=== PATIENT | male | born 1955 | race Caucasian/White ===

== ENCOUNTER 2016-09-26 14:50 | Inpatient (IN) ==
--- NOTE | 2016-09-26 15:00 | Emergency Department Note ---
Disposition Clinical Impression: Pulmonary embolism and infarction Disposition: Admitted As Inpatient Condition: Fair Referrals: Alexandro Andrade MD [Partnered Physician] - Forms: ED Satisfaction Letter Time of Disposition: 16:23 Chest Pain HPI - General Chief Complaint: ED Chest Pain Stated Complaint: R/O PE Time Seen by Provider: 09/26/16 14:57 Source: patient, EMS Mode of arrival: EMS Limitations: no limitations Vital Signs Reviewed: Yes Nursing Notes Reviewed: Yes - History of Present Illness HPI Narrative: 61-year-old male who presents [facility] complaining of right chest pain. Patient had some burning pain in his right calf 2 days ago that went away yesterday had acute onset of right chest discomfort seen at the [facility] today they did a chest x-ray showed slightly diminished lung volumes with left basilar opacity. Urinalysis was essentially negative. White count was 15.3 H&H of 15 3 and 46.4 with a platelet count of 220 d-dimer was 1.50 with high normal being 0.53. Do not have a renal function. Pt complaint: chest pain Onset (ago): day(s) Duration: intermittent Onset: during rest Pain Location: right chest Severity: moderate Quality: sharp Improves with: other (Shallow breathing) Worsens with: other (Breathing) - Related Data Allergies Allergy/AdvReac Type Severity Reaction Status Date / Time No Known Allergies Allergy Verified 09/26/16 15:05 All systems ED: reviewed and negative except as stated. Constitutional: Denies: fever, chills, weakness, weight change Eyes: Denies: eye pain, eye discharge, vision change ENT ED: Denies: ear pain, throat pain, dental pain, hearing loss, epistaxis, congestion, dysphagia Cardiovascular: Reports: chest pain. Denies: palpitations, dyspnea on exertion , edema, syncope Respiratory: Denies: cough, dyspnea, wheezes, hemoptysis, stridor Gastrointestinal: Denies: abdominal pain, nausea, vomiting, diarrhea, constipation, hematemesis, melena, hematochezia Genitourinary: Denies: urgency, dysuria, frequency, hematuria Musculoskeletal: Denies: back pain, neck pain, arthralgia, myalgia Integumentary: Denies: rash, abrasion, lesions Neurological: Denies: headache, weakness, numbness, paresthesias, confusion, abnormal gait, vertigo Psychiatric: Denies: anxiety, depression, suicidal thoughts, homicidal thoughts , auditory hallucinations, visual hallucinations Endocrine: Denies: fatigue Hematological/Lymphatic: Denies: easy bleeding, easy bruising Allergic/Immunologic: Denies: facial swelling, urticaria Physical Exam - General Limitations: no limitations General appearance: alert, in no apparent distress - Head Head exam: atraumatic, normocephalic, normal inspection - Eye Eye exam: Present: normal appearance, PERRL, EOMI - ENT ENT exam: normal exam, normal oropharynx, mucous membranes moist - Neck Neck exam: Present: normal inspection, full ROM, trachea midline - Chest Chest inspection: Present: normal inspection, symmetric chest wall rise - Respiratory Respiratory exam: Present: normal lung sounds bilaterally - Cardiovascular Cardiovascular exam: Present: regular rate, normal rhythm, normal heart sounds - Abdominal Exam Abdominal exam: Present: soft, Non-Tender. Absent: tenderness, distention, guarding, rebound, rigidity - Extremities Exam Extremities exam: Present: normal inspection, full ROM. Absent: tenderness, pedal edema - Expanded Lower Extremity Exam Neurovascular/Tendon exam: Absent: motor deficit, sensory deficit, tendon deficit - Back Exam Back exam: Present: normal inspection, full ROM. Absent: tenderness - Neurological Exam Neurological exam: Present: alert, oriented X3 - Psychiatric Psychiatric exam: Present: normal affect, normal mood - Skin Skin exam: Present: warm, dry, intact, normal color Course - Reevaluation(s) Reevaluation #1: 61-year-old who came over from the [facility] with right chest pain area at CTA does show pulmonary embolism with pulmonary infarct. Patient has some renal insufficiency were to start him on some heparin. Will be admitted. Time: 17:03 - Consultations Consultation #1: Stressed with Dr. Petersen, admit Time: 17:04 Vital Signs Temperature 98.5 F 09/26/16 14:52 Pulse Rate 97 09/26/16 14:52 Respiratory Rate 18 09/26/16 14:52 Blood Pressure 122/75 09/26/16 14:52 O2 Sat by Pulse Oximetry 97 09/26/16 14:52 Temperature 98.5 F 09/26/16 14:52 Pulse Rate 97 09/26/16 14:52 Respiratory Rate 18 09/26/16 14:52 Blood Pressure 122/75 09/26/16 14:52 O2 Sat by Pulse Oximetry 97 09/26/16 14:52 Oxygen Delivery Oxygen Delivery Room Air Chest Pain - Lab Data Lab results reviewed: Yes I reviewed the patient's lab results. Result diagrams: 09/26/16 15:12 09/26/16 15:12 Lab Results 09/26/16 09/26/16 Range/Units 15:12 15:12 WBC 16.5 H (4.3-11.1) K/mcL RBC 4.96 (4.19-5.50) M/mcL Hgb 14.3 (12.9-16.9) g/dL Hct 43.8 (37.5-50.1) % MCV 88.3 (83.0-100.0) fL MCH 28.8 (28.0-33.3) pg MCHC 32.6 (31.6-35.5) g/dL RDW 12.5 (11.5-14.5) % Plt Count 209 (140-400) K/mcL MPV 10.8 (9.4-12.4) fL Sodium 139 (136-145) mEq/L Potassium 4.4 (3.5-4.5) mEq/L Chloride 101 (98-109) mEq/L Carbon Dioxide 26 (19-29) mEq/L BUN 14 (8-26) mg/dL Creatinine 1.37 H (0.72-1.25) mg/dL Est GFR ( Amer) > 60 (> 60) Est GFR (Non-Af Amer) 53 L (> 60) BUN/Creatinine Ratio 10 (6-26) Glucose 122 H (70-99) mg/dL Calculated Osmolality 290 (280-300) Calcium 10.3 (8.6-10.8) mg/dL - Radiology Data Radiology results reviewed: Yes I reviewed the patient's radiology results. Chest CTA 09/26/16 14:57 IMPRESSION: 1. Evidence of bilateral lower lung pulmonary emboli, mainly on the right, with associated airspace disease, some of which is likely pulmonary infarct. Findings were discussed with Sriram Lowe at 4:22 pm on 09/26/2016. D/ / Alber Pastor MD / Alber Pastor MD Interpreting Provider: Alber Pastor MD Heart Score - Score History: Slightly Suspicious EKG: Normal Risk Factors: 1-2 risk factors Troponin: Less than normal limit Critical Care Time Critical Care Time: Yes Total Critical Care Time: 30 Attestation: The high probability of a clinically significant, sudden or life threatening deterioration of the [cardiopulmonary] system(s) required my full and direct attention, intervention and personal management. The aggregate critical care time was [30] minutes. This time is in addition to time spent performing reported procedures but includes the following: [x] Data Review and interpretation [x] Patient assessment and monitoring of vital signs [x] Documentation [x] Medication orders and management
[2016-09-26 15:33] LABS: BUN/Creatinine Ratio 10 (6-26); Blood Urea Nitrogen 14 mg/dL (8-26); Calcium 10.3 mg/dL (8.6-10.8); Carbon Dioxide 26 mEq/L (19-29); Chloride 101 mEq/L (98-109); Glucose 122 mg/dL (70-99); Osmolality,Calculated 290 (280-300); Potassium 4.4 mEq/L (3.5-4.5); Sodium 139 mEq/L (136-145); eGFR For African Americans > 60 (> 60); eGFR For Non-African Americans 53 (> 60)
[2016-09-26] MEDS ORDERED: 0.9 % Sodium Chloride 1,000 ML IVC ONE (15:35)
[2016-09-26] MEDS ORDERED: *HR* Heparin 5,000 UNIT/ML VIAL IVP PRN ×2 (16:21)
[2016-09-26] MEDS ORDERED: *HR* Heparin 5,000 UNIT/ML VIAL IVP ONE (16:21)
[2016-09-26] MEDS ORDERED: Heparin 25,000 UNIT/500 ML D5W 25,000 UNIT/500 ML MLS IVC SCH (16:30)
[2016-09-26 16:58] LABS: Hematocrit 43.8 % (37.5-50.1); Hemoglobin 14.3 g/dL (12.9-16.9); Mean Corpuscular HGB Conc 32.6 g/dL (31.6-35.5); Mean Corpuscular Hemoglobin 28.8 pg (28.0-33.3); Mean Corpuscular Volume 88.3 fL (83.0-100.0); Mean Platelet Volume 10.8 fL (9.4-12.4); Platelet Count 209 K/mcL (140-400); Red Blood Count 4.96 M/mcL (4.19-5.50); Red Cell Distribution Width 12.5 % (11.5-14.5)
[2016-09-26 17:07] LABS: INR 1.2; Prothrombin Time 12.8 Seconds (9.4-12.1)
[2016-09-26] MEDS ORDERED: *HR* HYDROcodone/Acet 5/325 mg TABLET PO PRN (17:58)
--- NOTE | 2016-09-26 18:05 | Internal Med History&Physical ---
Date of Encounter: 09/26/16 Time of Encounter: 17:59 Assessment and Plan (1) Low back pain Current visit: Yes Status: Acute Over the past week patient has been more recumbent related to back injury. No clinical signs of spinal cord injury. Pain control and muscle relaxant. Outpatient follow-up with neurosurgery. Qualifiers: Qualified Code(s): M54.5 - Low back pain (2) Pulmonary embolism and infarction Current visit: Yes Status: Acute I suspect that this is provoked pulmonary embolism. Suspect two provoking factors: 1st is increased recumbency related to his back pain. 2nd, 4 months ago he had a trip from [place] to [place] driving. Advised him to avoid prolonged travels like that. Patient will need at least 3 to 6 month of anticoagulation. He had no prior history of DVT or PE. No family history of pulmonary embolism. He was already started on heparin, if we want to check Hypercoagulable work up this has to be done as an outpatient. I discussed with him that he will need to see hematology after hospital discharge the [facility] opinion about duration of Anticoagulation. (3) Leucocytosis Current visit: Yes Status: Acute Suspected this is related to pulmonary embolism. Although there is evidence of consolidation on CT scan is likely related to pulmonary infarction. He denies any sputum production. He is afebrile. I will hold off antibiotics for now. Qualifiers: Qualified Code(s): D72.829 - Elevated white blood cell count, unspecified Internal Medicine - H&P: HPI Chief complaint: chest pain History of present illness: Mr. Ruiz is a 61 year old male with a history of hypertension, chronic back pain was sent from the [place] for further workup at our facility. Over the past week patient had injury of his left lower back. Has been more or less recumbent since then. Yesterday patient started complaining of right-sided chest pain pleuritic in nature worsens with inspiration. He did complain of some burning sensation in his right calf prior to that. He denies any syncope, hemoptysis. He was not room air during my interview. An elevated D-dimer provoked CTA which showed evidence of bilateral pulmonary embolism. 4 months ago patient had a trip to [place] driving with multiple stops. No prior history of DVT or pulmonary embolism. No family history of DVT/ or pulmonary embolism. Patient denies any fevers or sputum production. Denies any history of G.I. bleeding or any other contraindication for anticoagulation therapy. Past Med Surg Social Fam HX - Past Medical History Medical history: hyperlipidemia, hypertension - Social History Smoking Status: Never smoker Smokeless Tobacco Status: No Alcohol use: heavy Drug use: marijuana Internal Medicine - H&P: Meds Allergies No Known Allergies Allergy (Verified 09/26/16 15:05) All Systems PM: A 10-system review of systems was performed and is negative for pertinent findings except as documented above in the HPI. Review of systems: 10 point review of systems is negative except for HPI - Constitutional Vitals: Temp Pulse Resp BP Pulse Ox 98.5 F 95 16 138/82 94 09/26/16 14:52 09/26/16 17:16 09/26/16 17:52 09/26/16 17:52 09/26/16 17:16 Exam: Gen.: patient is alert oriented times 3 not in distress. Cardiac: normal S1 S2 no additional sounds are murmurs. Chest: crackles in right base Abdomen: soft nontender nondistended. Lower extremity no swelling mucous membranes: moist Internal Med - H&P Results - Labs CBC & Chem 7: 09/26/16 15:12 09/26/16 15:12
[2016-09-27 04:39] LABS: Basophils % 0.1 %; Hematocrit 41.5 % (37.5-50.1); Hemoglobin 14.3 g/dL (12.9-16.9); Immature Granulocytes % 0.7 % (0-4); Lymphocytes # 1.5 K/mcL (0.6-4.6); Lymphocytes % 9.3 %; Mean Corpuscular HGB Conc 34.5 g/dL (31.6-35.5); Mean Corpuscular Hemoglobin 30.3 pg (28.0-33.3); Mean Corpuscular Volume 87.9 fL (83.0-100.0); Mean Platelet Volume 10.6 fL (9.4-12.4); Monocytes # 1.1 K/mcL (0.0-1.3); Monocytes % 6.5 %; Neutrophils # 13.5 K/mcL (1.6-8.9); Nucleated Red Blood Cells 0.1 /100 WBC (0); Platelet Count 225 K/mcL (140-400); Red Blood Count 4.72 M/mcL (4.19-5.50); Red Cell Distribution Width 12.2 % (11.5-14.5); Segmented Neutrophils % 83.4 %
[2016-09-27 04:52] LABS: BUN/Creatinine Ratio 16 (6-26); Blood Urea Nitrogen 19 mg/dL (8-26); Calcium 9.7 mg/dL (8.6-10.8); Carbon Dioxide 27 mEq/L (19-29); Chloride 103 mEq/L (98-109); Creatine Kinase 102 Units/L (30-200); Glucose 145 mg/dL (70-99); Magnesium 2.4 mg/dL (1.6-2.6); Osmolality,Calculated 291 (280-300); Potassium 3.8 mEq/L (3.5-4.5); Sodium 138 mEq/L (136-145); eGFR For African Americans > 60 (> 60); eGFR For Non-African Americans > 60 (> 60)
[2016-09-27] MEDS ORDERED: *HR* Morphine 2 MG/ML SYRINGE IVP ONE (05:02)
[2016-09-27] MEDS ORDERED: *HR* Enoxaparin 100 MG/ML SYRINGE SQ SCH (07:30)
[2016-09-27] MEDS ORDERED: Famotidine 20 MG TABLET PO SCH (09:00)
[2016-09-27] MEDS ORDERED: *HR* OxyCODONE/APAP 5/325 TABLET PO PRN (09:06)
--- NOTE | 2016-09-27 11:28 | Discharge Summary ---
Date of Encounter: 09/27/16 Time of Encounter: 11:00 - Discharge Diagnosis (1) Pulmonary embolism and infarction Priority: Primary Status: Acute (2) Low back pain Priority: Secondary Status: Acute Qualifiers: Chronicity: chronic Back pain laterality: left Sciatica presence: with sciatica Sciatica laterality: sciatica of left side Qualified Code(s): M54.42 - Lumbago with sciatica, left side; G89.29 - Other chronic pain (3) Leucocytosis Priority: Secondary Status: Acute Qualifiers: Leukocytosis type: other Qualified Code(s): D72.828 - Other elevated white blood cell count - Discharge Medications Prescriptions: OxyCODONE/APAP 5/325 [Percocet 5/325 MG] 1 each PO Q6HR PRN #14 tablet PRN Reason: Pain Cyclobenzaprine [Flexeril] 10 mg PO BID #30 tablet Rivaroxaban [Xarelto] 15 mg PO Q12H #30 tablet Home Medications: Cyclobenzaprine [Flexeril] 10 mg PO BID #30 tablet 09/27/16 [Rx] OxyCODONE/APAP 5/325 [Percocet 5/325 MG] 1 each PO Q6HR PRN #14 tablet 09/27/16 [Rx] Rivaroxaban [Xarelto] 15 mg PO Q12H #30 tablet 09/27/16 [Rx] Allergies/Adverse Reactions: Allergies No Known Allergies Allergy (Verified 09/26/16 15:05) Procedures/tests Complete & Pending: Procedures Performed prior 72 hours Category Date Time Status Venous Doppler [EV venous imaging LE BI] Routine Y 09/27/16 09:50 Ordered Date of admission: 09/26/16 22:00 [facility] Discharging clinician: Darcy Cline Anticipated date of discharge: 09/27/16 - Patient Status Disposition: Home, Self-Care Condition: Good Functional capacity at discharge: independent ambulation Overall status at discharge: patient is progressing back to baseline - Discharge Instructions Instructions: Pulmonary Embolism (DC) [facility]: [facility] [Primary Care Provider] - (in 1-2 weeks) - Diet and Activity Activity: increase activity as tolerated Diet: low fat, low cholesterol, low salt diet Hospital course: Mr. Ruiz is a 61 year old male - Time Spent with Patient Total time spent providing and/or coordinating discharge services: Greater than 30 minutes (35 min) - Constitutional Vitals: Temp Pulse Resp BP Pulse Ox 98.1 F 93 18 141/83 96 09/27/16 10:41 09/27/16 10:41 09/27/16 10:41 09/27/16 10:41 09/27/16 10:41 General appearance: Present: cooperative, A&O X 3, answers questions appropriately - Respiratory Respiratory exam: Present: CTAB. Absent: accessory muscle use, rales, rhonchi, wheezes - Cardiovascular Cardiovascular exam: Present: RRR, +S1, +S2. Absent: diastolic murmur, gallop, rubs, systolic murmur - GI/Abdominal GI/Abdominal exam: Present: normal bowel sounds, soft, no peritoneal signs. Absent: distended, tenderness - Extremities Exam Extremities exam: Present: warm, radial pulses palpable and symetrical. Absent : calf tenderness, cyanotic, pedal edema - Neurological Exam Neurological exam: Present: alert, oriented X3, no focal deficits. Absent: facial droop, speech deficit - Skin Skin exam: Present: dry, intact
[2016-09-27 15:36] VITALS: BP 131/76
[2016-09-27] MEDS ORDERED: *HR* Rivaroxaban 15 MG TABLET PO SCH (18:00)
--- NOTE | 2016-09-28 17:12 | Venous Imaging Report ---
LE Venous Duplex Patient Name:Miguel Ruiz Order Number:[id number] Procedure Date:09/27/2016 Date:4Age:61 yrs Gender:Male Location:[facility] Room #: [id number] Record Retrieval Specialist:Karen Pan Referring MD:Fermin Monaco MD hot pond operator:[facility] Bubba MD:Milan Hawkins MD Primary Indications:PE Secondary Indications: Risk Factors Yes/No Anticoagulants Impressions: Normal bilateral lower extremity deep and superficial venous exam. Findings Prior Study: No prior study available for comparison. Lower Extremity Venous Duplex Side Vein Compress Spontaneous Flow Augment Diameter (cm) Depth (cm) Right Distal Iliac Normal Yes Phasic Yes Right Common Femoral Normal Yes Phasic Yes Right Superficial Femoral Normal Yes Phasic Yes Right Popliteal Normal Yes Phasic Yes Right Posterior Tibial Normal Yes Phasic Yes Right Peroneal Normal Yes Phasic Yes Right Saphenofemoral [place] Normal Yes Phasic Yes Right Great Saphenous Normal Yes Phasic Yes Right Lesser Saphenous Normal Yes Phasic Yes Left Distal Iliac Normal Yes Phasic Yes Left Common Femoral Normal Yes Phasic Yes Left Superficial Femoral Normal Yes Phasic Yes Left Popliteal Normal Yes Phasic Yes Left Posterior Tibial Normal Yes Phasic Yes Left Peroneal Normal Yes Phasic Yes Left Saphenofemoral [place] Normal Yes Phasic Yes Left Great Saphenous Normal Yes Phasic Yes Left Lesser Saphenous Normal Yes Phasic Yes Updated by Milan Hawkins MD on 09/28/2016 5:05:38 PM electronically signed on 09/28/2016 5:05:52 PM with status of Final
[2016-09-29 19:15] LABS: CK-BB (CK isoenzymes) 0 % (0-0); CK-MB (CK isoenzymes) 0 % (0-4); CK-MM (CK-isoenzymes) 100 % (96-100)
[2016-10-01 08:11] LABS: CK Total (Ck Isoenzymes) 92 U/L (20-200)
== END 2016-09-27 17:53 | disposition home or self-care (01) | DRG 176 ==
LOC: 2NENU 14:50 → EMEROO 14:50 → 2NENU 18:10
PROVIDERS: ADMIT Family Medicine; ATTEND Internal Medicine